=== PATIENT | male | born 1975 | race Caucasian/White ===

== ENCOUNTER 2024-05-26 09:26 | Emergency (ER) | payer MEDICARE, OTHER ==
[2024-05-26 09:38] VITALS: TEMP 97
--- NOTE | 2024-05-26 09:52 | ERPHSYRPT ---
- History of Present Illness Time Seen by Provider: 05/26/24 09:52 Historian: patient Exam Limitations: no limitations Patient Subjective Stated Complaint: C/O vomiting and diarrhea for 3-4 days Triage Nursing Assessment: Patient ambulated back to ER without difficulties. He is alert and oriented; anxious. No SOB. No cough. No active vomiting during assessment. Skin tone normal. CARMEN ELLIOTT. Physician History: The patient, with a history of hypertension and diabetes, presents with a three- day history of vomiting and diarrhea. They report that they have been unable to keep anything down, with every attempt at eating or drinking resulting in emesis. They deny any recent exposure to sick contacts and any hematemesis. In addition to the vomiting and diarrhea, the patient has been experiencing generalized abdominal pain for the past 30 days. They describe the pain as severe, rating it a 10 on a scale of 10, and characterize it as crampy and sharp. They deny any history of abdominal surgeries. The patient's diabetes appears to be poorly controlled, with reported blood glucose levels frequently in the 300s. They are on insulin and antihypertensive medication for their chronic conditions. They deny any recent changes in their medication regimen and any known drug allergies. Timing/Duration: day(s) (3) Activities at Onset: rest Quality: cramping Abdominal Pain Onset Location: generalized abdomen Pain Radiation: no radiation Severity of Pain-Max: severe Severity of Pain-Current: severe Modifying Factors: Improves With: nothing Associated Symptoms: diaphoresis, diarrhea, loss of appetite, nausea, vomiting, No chest pain, No fever/chills, No fatigue, No headache, No neck pain, No sh ortness of breath, No weakness Previous symptoms: no prior history Allergies/Adverse Reactions: No Known Drug Allergies Allergy (Verified 05/26/24 09:30) Home Medications: Atorvastatin Calcium [Lipitor] 10 mg PO HS 05/26/24 [History] Citalopram Hydrobromide 20 mg* [ceLEXa 20 MG] 20 mg PO HS 05/26/24 [History] Insulin Glargine [Lantus Insulin] 35 unit SQ HS 05/26/24 [History] Lisinopril 10 mg [Zestril 10 MG] 10 mg PO DAILY 05/26/24 [History] Metformin HCl 500 mg [Glucophage 500 MG] 1,000 mg PO HS 05/26/24 [History] hydroCHLOROthiazide [Hydrochlorothiazide] 12.5 mg PO DAILY 05/26/24 [History] Hx Tetanus, Diphtheria Vaccination/Date Given: Yes Hx Influenza Vaccination/Date Given: Yes Hx Pneumococcal Vaccination/Date Given: No Immunizations Up to Date: Yes Travel Risk - International Travel Have you traveled outside of the country in past 3 weeks: No - Emerging Infectious Disease Are you exhibiting symptoms associated with any current EIDs: Yes Symptoms: Abdominal Pain, Diarrhea, Vomitting - Review of Systems All Other Systems: Reviewed and Negative - Past Medical History Pertinent Past Medical History: Yes Cardiac History: High Cholesterol, Hypertension Endocrine Medical History: Diabetes Type II Psycho-Social History: Other Other Medical History: "anger issues". States Geoffrey Bautista told him a few weeks ago that he has "clots in my lungs" - Past Surgical History Past Surgical History: Yes Other Surgical History: HIP - Social History Smoking Status: Never smoker Exposure to second hand smoke: No Drug Use: none Patient Lives Alone: No - Social Determinants of Health Will the patient participate in the screening: Yes Do you worry about a steady place to live?: No Do you have any problems with any of the following?: No known problems In the past 12 months,have you had to go without utilities?: No Transportation Issues: No Has anyone in your support network made you feel unsafe?: No Have you or anyone in your house had to go without enough: No - Nursing Vital Signs Nursing Vital Signs: Initial Vital Signs Temperature 97 F 05/26/24 09:31 Pulse Rate 106 H 05/26/24 09:31 Respiratory Rate 18 05/26/24 09:31 Blood Pressure 181/90 05/26/24 09:31 O2 Sat by Pulse Oximetry 96 05/26/24 09:31 Pain Scale Pain Intensity 0 - Physical Exam General Appearance: no apparent distress, obese Eye Exam: eyes nml inspection Ears, Nose, Throat Exam: normal ENT inspection Neck Exam: normal inspection, supple, full range of motion Respiratory Exam: normal breath sounds, lungs clear, airway intact, No respiratory distress Cardiovascular Exam: regular rate/rhythm, normal heart sounds, capillary refill <2 sec, No edema Gastrointestinal/Abdomen Exam: soft, distention, No tenderness, No mass, No guarding, No rebound Extremity Exam: No swelling, No tenderness Neurologic Exam: alert, oriented x 3, cooperative Skin Exam: normal color, warm, dry SpO2 Interpretation: normal SpO2: 96 O2 Delivery: Room Air - Course Nursing assessment & vital signs reviewed: Yes - CT Exams Abdomen/Pelvis CT Interpretation: Tele-radiologist Report, Other (new colonic diarrhea, fatty liver) Ordered Tests: Active Orders 24 hr Category Date Time Status IV Insertion STAT Care 05/26/24 09:56 Completed Telemetry q4h Care 05/26/24 10:53 Completed ABDOMEN AND PELVIS W CONTRAST [CT] Stat Exams 05/26/24 09:57 Completed CBC W DIFF Stat Lab 05/26/24 09:35 Completed CMP Stat Lab 05/26/24 09:35 Completed LIPASE Stat Lab 05/26/24 09:35 Completed Lactic Acid Stat Lab 05/26/24 09:35 Completed MAGNESIUM Stat Lab 05/26/24 09:35 Completed PHOSPHOROUS Stat Lab 05/26/24 09:35 Completed POCT GLUCOSE Stat Lab 05/26/24 11:52 Completed TROPONIN Q4H Lab 05/26/24 09:35 Completed UA W/RFX UR CULTURE Stat Lab 05/26/24 12:59 Completed VENOUS BLOOD GAS Stat Lab 05/26/24 09:35 Completed Medication Summary Discontinued Medications Generic Name Dose Route Start Last Admin Trade Name Ziq PRN Reason Stop Dose Admin Droperidol 1.25 mg 05/26/24 09:56 05/26/24 10:15 Droperidol 5 Mg/2 Ml Vial IV 05/26/24 09:57 1.25 mg STAT ONE Administration Droperidol Confirm 05/26/24 10:12 Droperidol 5 Mg/2 Ml Vial Administered 05/26/24 10:13 Dose 5 mg .ROUTE .STK-MED ONE Sodium Chloride 1,000 mls @ 999 mls/hr 05/26/24 09:56 05/26/24 11:20 Sodium Chloride 0.9% 1000 Ml IV 05/26/24 10:56 Infused .Q1H1M STA Infusion Sodium Chloride Confirm 05/26/24 10:13 Sodium Chloride 0.9% 1000 Ml Administered 05/26/24 10:14 Dose 1,000 mls @ ud .ROUTE .STK-MED ONE Potassium Chloride 20 meq in 100 mls @ 50 mls/hr 05/26/24 11:00 05/26/24 13:05 Potassium Chloride 20 Meq In Water 100ml IV 05/26/24 14:59 Not Given Q2H PURVI Sodium Chloride 1,000 mls @ 500 mls/hr 05/26/24 12:00 05/26/24 13:59 Sodium Chloride 0.9% 1000 Ml IV 06/25/24 11:59 Infused .Q2H PURVI Infusion Potassium Chloride Confirm 05/26/24 11:03 Potassium Chloride 20 Meq In Water 100ml Administered 05/26/24 11:04 Dose 100 mls @ ud IV .STK-MED ONE Sodium Chloride Confirm 05/26/24 11:56 Sodium Chloride 0.9% 1000 Ml Administered 05/26/24 11:57 Dose 1,000 mls @ ud .ROUTE .STK-MED ONE Insulin Human Lispro 12 unit 05/26/24 10:52 05/26/24 11:04 Insulin Lispro 1 Unit SQ 05/26/24 10:53 12 unit STAT ONE Administration Insulin Human Lispro Confirm 05/26/24 11:03 Insulin Lispro 1 Unit Administered 05/26/24 11:04 Dose 12 unit .ROUTE .STK-MED ONE Lab/Rad Data: Laboratory Result Diagrams 05/26/24 09:35 05/26/24 09:35 Laboratory Results 05/26/24 05/26/24 05/26/24 Range/Units 12:59 11:52 09:35 WBC (4.23-9.07) x10^3/uL RBC (4.63-6.08) x10^6/uL Hgb (13.7-17.5) g/dL Hct (40.1-51.0) % MCV (79.0-92.2) fL MCH (25.7-32.2) pg MCHC (32.3-36.5) g/dL RDW (11.6-14.4) % Plt Count (163-337) x10^3/uL MPV (9.4-12.4) fL Gran % (34.0-67.9) % Immature Gran % (Auto) (0.001-0.429) % Nucleat RBC Rel Count (0.00-0.2) % Eos # (Auto) (0.04-0.54) x10^3/uL Immature Gran # (Auto) (0.001-0.031) x10^3u/L Absolute Lymphs (auto) (1.32-3.57) x10^3/uL Absolute Monos (auto) (0.30-0.82) x10^3/uL Absolute Nucleated RBC (0.00-0.012) x10^3u/L Lymphocytes % (21.8-53.1) % Monocytes % (5.3-12.2) % Eosinophils % (0.8-7.0) % Basophils % (0.2-1.2) % Absolute Granulocytes (1.78-5.38) x10^3/uL Basophils # (0.01-0.08) x10^3/uL pO2/FiO2 Ratio % VBG pH (7.32-7.42) VBG pCO2 at Pat Temp (42-55) mm/Hg VBG pO2 at Pat Temp (25-40) mm/Hg VBG HCO3 (22-28) meq/L VBG O2 Sat ([place]eba) (95-100) VBG Base Excess (-2.0-2.0) VBG Hemoglobin VBG Carboxyhemoglobin (0.0-6.9) % T HGB POC Potassium (3.5-5.1) Sodium (135-145) mmol/L Potassium (3.5-5.1) mmol/L Chloride (98-107) mmol/L Carbon Dioxide (22-30) mmol/L Anion Gap (5-15) MEQ/L BUN (9-20) mg/dL Creatinine (0.66-1.25) mg/dL Estimated GFR ML/MIN Glucose (74-106) mg/dL POC Glucometer 235 H (74 to 106) mg/dL Hemoglobin A1c 10.94 H (4.5-6.0) % Lactic Acid (0.4-2.0) Calcium (8.4-10.2) mg/dL Phosphorus (2.5-4.5) mg/dL Magnesium (1.6-2.3) mg/dL Total Bilirubin (0.2-1.3) mg/dL AST (17-59) U/L ALT (0-50) U/L Alkaline Phosphatase (38-126) U/L Troponin I (0.000-0.033) ng/mL Serum Total Protein (6.3-8.2) g/dL Albumin (3.5-5.0) g/dL Lipase (23-300) U/L Urine Color Yellow (Yellow) Urine Appearance Clear (Clear) Urine pH 5.5 (4.6-8.0) Ur Specific [place] >=1.030 A (1.005-1.030) Urine Protein 30 (Negative) Urine Glucose (UA) >=1000 A (Negative) mg/dL Urine Ketones 15 A (Negative) Urine Blood Negative (Negative) Urine Nitrite Negative (Negative) Urine Bilirubin Negative (Negative) Urine Urobilinogen 0.2 (0.2) mg/dL Ur Leukocyte Esterase Negative (Negative) U Hyaline Cast (Auto) NONE SEEN (0-2) /LPF Urine Microscopic RBC 0-2 (0-5) /HPF Urine Microscopic WBC 0-2 (0-5) /HPF Ur Epithelial Cells None Seen (None Seen) /HPF Urine Bacteria None Seen (None Seen) /HPF Urine Culture Reflexed NO (NO) 05/26/24 05/26/24 05/26/24 Range/Units 09:35 09:35 09:35 WBC (4.23-9.07) x10^3/uL RBC (4.63-6.08) x10^6/uL Hgb (13.7-17.5) g/dL Hct (40.1-51.0) % MCV (79.0-92.2) fL MCH (25.7-32.2) pg MCHC (32.3-36.5) g/dL RDW (11.6-14.4) % Plt Count (163-337) x10^3/uL MPV (9.4-12.4) fL Gran % (34.0-67.9) % Immature Gran % (Auto) (0.001-0.429) % Nucleat RBC Rel Count (0.00-0.2) % Eos # (Auto) (0.04-0.54) x10^3/uL Immature Gran # (Auto) (0.001-0.031) x10^3u/L Absolute Lymphs (auto) (1.32-3.57) x10^3/uL Absolute Monos (auto) (0.30-0.82) x10^3/uL Absolute Nucleated RBC (0.00-0.012) x10^3u/L Lymphocytes % (21.8-53.1) % Monocytes % (5.3-12.2) % Eosinophils % (0.8-7.0) % Basophils % (0.2-1.2) % Absolute Granulocytes (1.78-5.38) x10^3/uL Basophils # (0.01-0.08) x10^3/uL pO2/FiO2 Ratio 21.0 % VBG pH 7.46 H (7.32-7.42) VBG pCO2 at Pat Temp 36 L (42-55) mm/Hg VBG pO2 at Pat Temp 48 H (25-40) mm/Hg VBG HCO3 25.6 (22-28) meq/L VBG O2 Sat (Sheeba) 85.1 L (95-100) VBG Base Excess 2.1 H (-2.0-2.0) VBG Hemoglobin 16.4 VBG Carboxyhemoglobin 4.3 (0.0-6.9) % T HGB POC Potassium 3.4 L (3.5-5.1) Sodium (135-145) mmol/L Potassium (3.5-5.1) mmol/L Chloride (98-107) mmol/L Carbon Dioxide (22-30) mmol/L Anion Gap (5-15) MEQ/L BUN (9-20) mg/dL Creatinine (0.66-1.25) mg/dL Estimated GFR ML/MIN Glucose (74-106) mg/dL POC Glucometer (74 to 106) mg/dL Hemoglobin A1c (4.5-6.0) % Lactic Acid (0.4-2.0) Calcium (8.4-10.2) mg/dL Phosphorus 2.7 (2.5-4.5) mg/dL Magnesium 1.9 (1.6-2.3) mg/dL Total Bilirubin (0.2-1.3) mg/dL AST (17-59) U/L ALT (0-50) U/L Alkaline Phosphatase (38-126) U/L Troponin I < 0.012 (0.000-0.033) ng/mL Serum Total Protein (6.3-8.2) g/dL Albumin (3.5-5.0) g/dL Lipase (23-300) U/L Urine Color (Yellow) Urine Appearance (Clear) Urine pH (4.6-8.0) Ur Specific [place] (1.005-1.030) Urine Protein (Negative) Urine Glucose (UA) (Negative) mg/dL Urine Ketones (Negative) Urine Blood (Negative) Urine Nitrite (Negative) Urine Bilirubin (Negative) Urine Urobilinogen (0.2) mg/dL Ur Leukocyte Esterase (Negative) U Hyaline Cast (Auto) (0-2) /LPF Urine Microscopic RBC (0-5) /HPF Urine Microscopic WBC (0-5) /HPF Ur Epithelial Cells (None Seen) /HPF Urine Bacteria (None Seen) /HPF Urine Culture Reflexed (NO) 05/26/24 05/26/24 05/26/24 Range/Units 09:35 09:35 09:35 WBC 7.6 (4.23-9.07) x10^3/uL RBC 4.96 (4.63-6.08) x10^6/uL Hgb 15.6 (13.7-17.5) g/dL Hct 44.3 (40.1-51.0) % MCV 89.3 (79.0-92.2) fL MCH 31.5 (25.7-32.2) pg MCHC 35.2 (32.3-36.5) g/dL RDW 12.2 (11.6-14.4) % Plt Count 277 (163-337) x10^3/uL MPV 10.0 (9.4-12.4) fL Gran % 66.5 (34.0-67.9) % Immature Gran % (Auto) 0.5 H (0.001-0.429) % Nucleat RBC Rel Count 0.0 (0.00-0.2) % Eos # (Auto) 0.04 (0.04-0.54) x10^3/uL Immature Gran # (Auto) 0.04 H (0.001-0.031) x10^3u/L Absolute Lymphs (auto) 1.40 (1.32-3.57) x10^3/uL Absolute Monos (auto) 1.03 H (0.30-0.82) x10^3/uL Absolute Nucleated RBC 0.00 (0.00-0.012) x10^3u/L Lymphocytes % 18.5 L (21.8-53.1) % Monocytes % 13.6 H (5.3-12.2) % Eosinophils % 0.5 L (0.8-7.0) % Basophils % 0.4 (0.2-1.2) % Absolute Granulocytes 5.02 (1.78-5.38) x10^3/uL Basophils # 0.03 (0.01-0.08) x10^3/uL pO2/FiO2 Ratio % VBG pH (7.32-7.42) VBG pCO2 at Pat Temp (42-55) mm/Hg VBG pO2 at Pat Temp (25-40) mm/Hg VBG HCO3 (22-28) meq/L VBG O2 Sat ([place]eba) (95-100) VBG Base Excess (-2.0-2.0) VBG Hemoglobin VBG Carboxyhemoglobin (0.0-6.9) % T HGB POC Potassium (3.5-5.1) Sodium 134 L (135-145) mmol/L Potassium 3.4 L (3.5-5.1) mmol/L Chloride 97 L (98-107) mmol/L Carbon Dioxide 23 (22-30) mmol/L Anion Gap 17.3 H (5-15) MEQ/L BUN 14 (9-20) mg/dL Creatinine 0.86 (0.66-1.25) mg/dL Estimated GFR 107.5 ML/MIN Glucose 293 H (74-106) mg/dL POC Glucometer (74 to 106) mg/dL Hemoglobin A1c (4.5-6.0) % Lactic Acid 2.0 (0.4-2.0) Calcium 9.2 (8.4-10.2) mg/dL Phosphorus (2.5-4.5) mg/dL Magnesium (1.6-2.3) mg/dL Total Bilirubin 0.90 (0.2-1.3) mg/dL AST 33 (17-59) U/L ALT 44 (0-50) U/L Alkaline Phosphatase 115 (38-126) U/L Troponin I (0.000-0.033) ng/mL Serum Total Protein 7.5 (6.3-8.2) g/dL Albumin 4.2 (3.5-5.0) g/dL Lipase 86 (23-300) U/L Urine Color (Yellow) Urine Appearance (Clear) Urine pH (4.6-8.0) Ur Specific [place] (1.005-1.030) Urine Protein (Negative) Urine Glucose (UA) (Negative) mg/dL Urine Ketones (Negative) Urine Blood (Negative) Urine Nitrite (Negative) Urine Bilirubin (Negative) Urine Urobilinogen (0.2) mg/dL Ur Leukocyte Esterase (Negative) U Hyaline Cast (Auto) (0-2) /LPF Urine Microscopic RBC (0-5) /HPF Urine Microscopic WBC (0-5) /HPF Ur Epithelial Cells (None Seen) /HPF Urine Bacteria (None Seen) /HPF Urine Culture Reflexed (NO) - Progress Progress Note: Three-day history of vomiting and diarrhea with generalized abdominal pain. No hematemesis or hematochezia. No recent exposure to sick contacts. -Administer IV fluids and antiemetics. -Order labs -CT abd/pelvis w/ contrast Poorly controlled Diabetes Mellitus: Reports blood glucose levels in the 300s. -Check blood glucose and ketone levels. -Administer insulin as needed. Hypertension: On antihypertensive medication. -Check blood pressure and medication as needed. CBC normal, CMP showed a potassium of 3.4, anion gap of 17.3 glucose of 293. Lactic 2, magnesium 1.9, troponin negative. VBG showed a pH of 7.46. Patient still has not been able to give a urine sample at this time. CT of the abdomen pelvis shows diarrhea and fatty liver otherwise negative scan. Patient was given 12 units of insulin lispro and 40 mill equivalents of potassium chloride IV will recheck glucose. Counseled pt/family regarding: lab results, diagnosis, need for follow-up, rad results Medical Desision Making - Diagnostic Testing Diagnostic test were ordered, analyzed, and reviewed by me: Yes Radiological Interpretation: Interpreted by me, Reviewed by me, Teleradiologist Report - Risk of complications The pt has a mod risk of morbidity or mortality based on: Need for prescription drug management - Departure Departure Disposition: Home Clinical Impression: Uncontrolled diabetes mellitus, Nausea and vomiting, Dehydration, Hyperglycemia, Ketonuria Condition: Good Critical Care Time: No Referrals: PAMELA NORTON NP [NON-STAFF PHY W/O PRIVILEGES] - Follow up/PCP as directed Instructions: The ABCs of diabetes Prescriptions: ondansetron HCL [Zofran] 8 mg PO TID PRN 5 Days #15 tablet PRN Reason: Nausea
[2024-05-26 10:11] LABS: Absolute Neutrophil Ct (ANC) 5.02 x10^3/uL (1.78-5.38); BASOPHIL % 0.4 % (0.2-1.2); Basophil (Absolute #) 0.03 x10^3/uL (0.01-0.08); Eosinophil % 0.5 % (0.8-7.0); Eosinophil (Absolute #) 0.04 x10^3/uL (0.04-0.54); Hematocrit 44.3 % (40.1-51.0); Hemoglobin 15.6 g/dL (13.7-17.5); IMMATURE GRAN # 0.04 x10^3u/L (0.001-0.031); IMMATURE GRAN % 0.5 % (0.001-0.429); Lymphocytes % 18.5 % (21.8-53.1); Mean Cell Volume 89.3 fL (79.0-92.2); Mean Corpuscular Hemoglobin 31.5 pg (25.7-32.2); Mean Corpuscular Hgb Concent. 35.2 g/dL (32.3-36.5); Monocyte (Absolute #) 1.03 x10^3/uL (0.30-0.82); Monocytes % 13.6 % (5.3-12.2); Neutrophil % 66.5 % (34.0-67.9); Platelet Count 277 x10^3/uL (163-337); Red Blood Count 4.96 x10^6/uL (4.63-6.08); Red Cell Distribution Width 12.2 % (11.6-14.4); White Blood Count 7.6 x10^3/uL (4.23-9.07)
[2024-05-26] MEDS ORDERED: Sodium Chloride 0.9% 1000 ML 1,000 ML ONE ×2 (10:13→11:56)
[2024-05-26] MEDS: Sodium Chloride 0.9% 1000 ML 1,000 ML IV STA (10:15)
[2024-05-26 10:22] LABS: VBG BASE EXCESS 2.1 (-2.0-2.0); VBG CARBOXYHEMOGLOBIN 4.3 % T HGB (0.0-6.9); VBG HCO3- 25.6 meq/L (22-28); VBG HEMOGLOBIN 16.4; VBG O2 SATURATION 85.1 (95-100); VBG POTASSIUM 3.4 (3.5-5.1); VBG pH 7.46 (7.32-7.42)
[2024-05-26 10:24] LABS: ALBUMIN 4.2 g/dL (3.5-5.0); ANION GAP 17.3 MEQ/L (5-15); BILIRUBIN,TOTAL 0.9 mg/dL (0.2-1.3); Calcium 9.2 mg/dL (8.4-10.2); Creatinine 1 0.86 mg/dL (0.66-1.25); EST GLOMERULAR FILTRATION RATE 107.5 ML/MIN; Potassium 3.4 mmol/L (3.5-5.1); Total Protein 7.5 g/dL (6.3-8.2)
[2024-05-26 11:02] LABS: MAGNESIUM 1.9 mg/dL (1.6-2.3); PHOSPHOROUS 2.7 mg/dL (2.5-4.5)
[2024-05-26] MEDS ORDERED: HUMALOG ONE (11:03)
[2024-05-26] MEDS ORDERED: POTASSIUM CHLORIDE 20 mEq IN WATER 100ML 100 ML IV ONE (11:03)
[2024-05-26] MEDS: HUMALOG SQ ONE (11:04)
[2024-05-26] MEDS: POTASSIUM CHLORIDE 20 mEq IN WATER 100ML 20 MEQ/100 ML BAG IV SCH (11:04)
--- NOTE | 2024-05-26 11:31 | XRAY ---
Indication: Right abdomen pain, nausea, vomiting, and diarrhea 3-4 days. Multiple contiguous axial images obtained through the abdomen and pelvis using 80 cc Isovue 370 contrast. Comparison: May 25, 2015 Lung bases clear. Heart not enlarged with now prominent epicardiac fat. Noncontrasted stomach and bowel loops appear nonobstructed. Normal appendix. New mild diffuse fluid distended colon favoring diarrhea. New diffuse fatty liver. No free fluid/air. Remaining liver, gallbladder, pancreas, spleen, adrenal glands, kidneys, ureters, bladder, and aorta are unremarkable. No pathologic retroperitoneal lymphadenopathy. Osseous structures intact with minimal degenerative changes throughout the spine. Impression: New colonic diarrhea and fatty liver. Remaining CT abdomen/pelvis with contrast exam is negative.
[2024-05-26] MEDS: Sodium Chloride 0.9% 1000 ML 1,000 ML IV SCH (11:57)
[2024-05-26 13:06] VITALS: BP 144/80; PULSE 90; RESP 22
[2024-05-26 13:09] LABS: Appearance Clear (Clear); Bacteria None Seen /HPF (None Seen); Bilirubin Negative (Negative); Blood Negative (Negative); Epithelial Cells None Seen /HPF (None Seen); Glucose, Urine >=1000 mg/dL (Negative); Hyaline Casts NONE SEEN /LPF (0-2); Ketones 15 (Negative); Leukocyte Esterase Negative (Negative); Nitrite Negative (Negative); Ph 5.5 (4.6-8.0); Protein,Urine Dip 30 (Negative); RBC 0-2 /HPF (0-5); Specific Gravity >=1.030 (1.005-1.030); Urobilinogen 0.2 mg/dL (0.2); WBC 0-2 /HPF (0-5)
[2024-05-26 13:11] LABS: ADD URINE CULTURE? NO (NO)
[2024-05-26 13:23] VITALS: O2SAT 96
== END 2024-05-26 14:00 | disposition home or self-care (01) ==
LOC: ED 09:26
DX: E11.65 Type 2 diabetes mellitus with hyperglycemia (principal); R11.2 Nausea with vomiting, unspecified; E86.0 Dehydration; R82.4 Acetonuria; R19.7 Diarrhea, unspecified; R10.84 Generalized abdominal pain; E78.5 Hyperlipidemia, unspecified; I10 Essential (primary) hypertension; Z79.4 Long term (current) use of insulin; Z79.84 Long term (current) use of oral hypoglycemic drugs; Z79.899 Other long term (current) drug therapy
CPT/HCPCS: 36000; 36415; 74177; 80053; 81001; 82805; 82947; 83036; 83605; 83690; 83735; 84100; 84484; 85025; 96360; 96361; 96365; 96372; 96374; 99284; J1817; J3480